=== PATIENT | female | born 1970 | race Caucasian/White ===

== ENCOUNTER → 2016-06-04 | Outpatient (CLI) | payer OTHER ==
[~2016-06-04] MED LIST: ALPR.25T PO; ALPR.5T PO; ALPR0.25 PO; ASPI-266 PO; BLAC80CA PO; BUDE8.43 NS; CALC-676 PO; CIPR-225 PO; CRV25T PO; ESOM20CA PO; FAMO20TA5 PO; FEXO180T84 PO; HYDR-3812 PO; KETO-22 PO; METO25TA2 PO; METO25TA6 PO; METR500T PO; MULT-608 PO; ONDA4TAB8 SL; PANT20TA2 PO; PARO20TA57 PO; PNT40TEC PO; SULF1TAB35 PO
--- NOTE | 2016-06-05 13:24 | Diagnostic Imaging Report ---
Bilateral screening mammogram. The current study was also evaluated with a Computer Aided Detection (CAD) system. INDICATION: Screening. No current complaints stated on the questionnaire. COMPARISON: 06/13/2015. FINDINGS: The breasts are composed of heterogeneously dense parenchyma which may decrease mammographic sensitivity. Occasional punctate calcifications are seen. Allowing for technique and positional differences, no suspicious change is seen. IMPRESSION: Dense breasts with no definite change. ACR BI-RADS Category 2: Benign findings. Result letter will be mailed to the patient. Note: At least 10% of breast cancer is not imaged by mammography. Dictated by: Dictated on workstation # [id number]
== END ==
LOC: RAD 10:25
PROVIDERS: ATTEND Family Medicine
DX: Z12.31 Encounter for screening mammogram for malignant neoplasm of breast (principal)

== ENCOUNTER → 2017-05-20 | Outpatient (CLI) | payer OTHER ==
[~2017-05-20] MED LIST changes: +ACHD5005 PO; -HYDR-3812 PO
--- NOTE | 2017-05-20 17:57 | Diagnostic Imaging Report ---
EXAMINATION: CHEST (PA AND LATERAL) CLINICAL INDICATION: 46-year-old female, cough. Difficulty breathing for one week. COMPARISON: 02/25/2013. FINDINGS: Heart size and mediastinal contours are unchanged. There is no identified pneumothorax. There is no pleural effusion. There is no identified focal airspace consolidation. IMPRESSION: No identified acute cardiopulmonary abnormality. Dictated by: Dictated on workstation # [id number]
== END ==
LOC: RAD 16:47
PROVIDERS: ATTEND Family Medicine
DX: J40 Bronchitis, not specified as acute or chronic (principal)
CPT/HCPCS: 71046

== ENCOUNTER → 2017-06-25 | Outpatient (CLI) | payer OTHER ==
--- NOTE | 2017-06-28 13:21 | Diagnostic Imaging Report ---
INDICATION: Routine screening. COMPARISON: Comparison is made with prior studies of 06/04/2016 and 06/13/2015. The current study was also evaluated with a Computer Aided Detection (CAD) system. FINDINGS: Both breasts are heterogeneously dense, limiting the sensitivity of mammography. The parenchymal pattern is stable. There are scattered benign calcifications present. No spiculated mass or malignant-appearing microcalcifications are seen. The axillae are unremarkable. IMPRESSION: No mammographic features suspicious for malignancy are identified. ACR BI-RADS Category 2: Benign findings. Result letter will be mailed to the patient. Note: At least 10% of breast cancer is not imaged by mammography. Dictated by: Dictated on workstation # [id number]
== END ==
LOC: RAD 14:43
PROVIDERS: ATTEND Family Medicine
DX: Z12.31 Encounter for screening mammogram for malignant neoplasm of breast (principal)
CPT/HCPCS: 77067

== ENCOUNTER → 2018-10-28 | Outpatient (CLI) | payer OTHER ==
--- NOTE | 2018-10-31 10:00 | Diagnostic Imaging Report ---
Indication: Routine screening. Comparison made with prior mammogram 06/25/2017 and 06/04/2016. 2-D and 3-D bilateral screening mammography was performed with CAD. Scattered fibroglandular densities are identified bilaterally. The parenchymal pattern is stable. No dominant mass or malignant appearing microcalcifications are seen. Axilla are unremarkable. Impression: BI-RADS category 2 No mammographic features suspicious for malignancy are identified. Dictated by: Dictated on workstation # [id number]
== END ==
LOC: RAD 15:32
PROVIDERS: ATTEND Family Medicine
DX: Z12.31 Encounter for screening mammogram for malignant neoplasm of breast (principal)
CPT/HCPCS: 77067

== ENCOUNTER → 2019-10-31 | Outpatient (CLI) | payer OTHER ==
--- NOTE | 2019-10-31 16:30 | Diagnostic Imaging Report ---
INDICATION: Routine screening. COMPARISON is made with prior mammograms of 10/28/2018 and 06/25/2017. 2-D and 3-D bilateral screening mammography was performed with CAD. Both breasts remain heterogeneously dense, limiting the sensitivity of mammography. No mass or malignant appearing microcalcifications are seen. Axillae are unremarkable. IMPRESSION: BI-RADS Category 1. No mammographic features suspicious for malignancy are identified. ACR BI-RADS Category 1: Negative. Result letter will be mailed to the patient. Note: At least 10% of breast cancer is not imaged by mammography. Dictated by: Dictated on workstation # [id number]
== END ==
LOC: RAD 14:40
PROVIDERS: ATTEND Family Medicine
DX: Z12.31 Encounter for screening mammogram for malignant neoplasm of breast (principal)
CPT/HCPCS: 77063; 77067

== ENCOUNTER 2020-05-31 05:32 | Outpatient (RCR) | payer OTHER ==
[~2020-05-31] VITALS: Ht 167.7 cm; Wt 88.6 kg
[~2020-05-31 05:32] MED LIST changes: +ALPR0.254 PO; +ASPI-999 PO; +ATOR40TA70 PO; +CALC-901 PO; +METO50TA7 PO; +MULT-567 PO; +OMEG-160 PO; +PANT40TA2 PO; +PARO40TA PO
== END 2020-08-26 | disposition home or self-care (01) ==
LOC: PREOP 05:32
PROVIDERS: ATTEND Obstetrics & Gynecology
DX: Z01.818 Encounter for other preprocedural examination (principal)

== ENCOUNTER → 2020-10-24 | Outpatient (CLI) | payer OTHER ==
--- NOTE | 2020-10-24 16:37 | Diagnostic Imaging Report ---
INDICATION: Screening. At this time there is no current complaint. EXAMINATION: Bilateral digital screening mammogram with CAD. 3D tomographic images were obtained and reviewed. The current study was also evaluated with a Computer Aided Detection (CAD) system. COMPARISON: This study was compared to the prior exams of 10/31/2019, 10/28/2018 and 06/25/2017. FINDINGS: The fibroglandular tissue in both breasts is heterogeneously dense. This does limit the sensitivity of this exam. Overall, there does not appear to have been any significant change when compared to the prior study. No primary or secondary sign of malignancy is noted. IMPRESSION: There is no radiographic evidence for malignancy. ACR BI-RADS Category 1: Negative. Result letter will be mailed to the patient. Note: At least 10% of breast cancer is not imaged by mammography. Dictated by: Dictated on workstation # [id number]
== END ==
LOC: RAD 14:39
PROVIDERS: ATTEND Family Medicine
DX: Z12.31 Encounter for screening mammogram for malignant neoplasm of breast (principal)
CPT/HCPCS: 77063; 77067

== ENCOUNTER → 2020-12-27 | Outpatient (CLI) | payer OTHER ==
[~2020-12-27] MED LIST changes: -SULF1TAB35 PO; +SULF1TAB38 PO
== END ==
LOC: CARD 08:26
PROVIDERS: ATTEND Family Medicine
DX: R00.2 Palpitations (principal)
CPT/HCPCS: 93225; 93226

== ENCOUNTER → 2021-01-02 | Outpatient (CLI) | payer OTHER | LOC: ONC 15:23 | PROVIDERS: ATTEND Nurse Practitioner Adult Health | DX: K21.9 Gastro-esophageal reflux disease without esophagitis (principal); Z72.0 Tobacco use; Z80.3 Family history of malignant neoplasm of breast ==

== ENCOUNTER 2021-04-23 02:33 | Emergency (ER) | payer OTHER ==
[~2021-04-23] VITALS: Ht 168 cm; Wt 87.0 kg
[2021-04-23] MEDS ORDERED: hydrALAZINE (APESOLINE) 20 MG/ML VIAL IV ONE ×2 (03:15→04:15)
[2021-04-23 03:35] LABS: BASOPHILS # (AUTO) 0.1 10^3/uL (0.0-0.1); BASOPHILS % (AUTO) 1 % (0-10); EOSINOPHILS # (AUTO) 0.3 10^3/uL (0.0-0.3); EOSINOPHILS % (AUTO) 3 % (0-10); HEMATOCRIT 44 % (35-52); HEMOGLOBIN 14.4 g/dL (11.5-16.0); LYMPHOCYTES # (AUTO) 4.1 10^3/uL (1.0-4.0); LYMPHOCYTES % (AUTO) 42 % (12-44); MEAN CORPUSCULAR HEMOGLOBIN 31 pg (25-34); MEAN CORPUSCULAR HGB CONC 33 g/dL (32-36); MEAN CORPUSCULAR VOLUME 95 fL (80-99); MEAN PLATELET VOLUME 10.3 fL (9.0-12.2); MONOCYTES # (AUTO) 0.6 10^3/uL (0.0-1.0); MONOCYTES % (AUTO) 6 % (0-12); NEUTROPHILS # (AUTO) 4.7 10^3/uL (1.8-7.8); NEUTROPHILS % (AUTO) 48 % (42-75); PLATELET COUNT 269 10^3/uL (130-400); WHITE BLOOD COUNT 9.8 10^3/uL (4.3-11.0)
[2021-04-23 03:44] LABS: ALBUMIN 4.6 GM/DL (3.2-4.5); CHLORIDE 103 MMOL/L (98-107); POTASSIUM 3.7 MMOL/L (3.6-5.0); SODIUM 140 MMOL/L (135-145)
[2021-04-23 03:46] LABS: CALCIUM 10.1 MG/DL (8.5-10.1)
[2021-04-23 03:47] LABS: GLUCOSE 96 MG/DL (70-105)
[2021-04-23 03:48] LABS: CARBON DIOXIDE 25 MMOL/L (21-32)
[2021-04-23 03:49] LABS: BILIRUBIN,TOTAL 0.7 MG/DL (0.1-1.0)
--- NOTE | 2021-04-23 03:49 | ED Cardiac General ---
History of Present Illness General Chief Complaint: Cardiac/General Problems Stated Complaint: HIGH BLOOD PRESSURE 198/111,SWEATING Nursing Triage Note: PT AMB TO ED BY POV WITH C/O HTN. PT REPORTS HER BP WAS 196/111 WHEN SHE TOOK IT APPROX 20 MIN PRIOR TO ARRIVAL. STATES SHE WAS VERY SWEATY THIS EVENING/THROUGH THE NIGHT SO SHE TOOK HER BP. PT ALSO REPORTS [place]. DENIES CP, SOB, N/V, CHANGES IN MEDICATION. Source: patient History of Present Illness Date Seen by Provider: Apr 23, 2021 Time Seen by Provider: 03:05 Initial Comments PT ARRIVES VIA POV FROM HOME C/O ELEVATED BLOOD PRESSURE PT STATES SHE WAS WRAPPING VIV PRESENTS FROM AROUND 2130 TONIGHT UNTIL MIDNIGHT, AND GOT SWEATY, SO CHECKED HER BLOOD PRESSURE AND IT WAS ELEVATED, HAS CHECKED IT SEVERAL TIMES LAST BLOOD PRESSURE CHECK WAS 20 MINUTES PRIOR TO ARRIVAL AND WAS 196/111 C/O GENERALIZED HEADACHE NO VISION CHANGES NO CHEST PAIN NO SHORTNESS OF BREATH NO DIZZINESS OR SYNCOPE NO NAUSEA/VOMITING NO PARESTHESIAS OR MOTOR DEFICITS NO SWELLING IN LEGS/FEET OR PAIN IN CALVES PT STATES SHE ALWAYS HAS PALPITATIONS, AND HAD A HOLTER MONITOR A COUPLE OF MONTHS AGO AND SHOWED PVC'S AND NO OTHER ARRHYTHMIAS NO HISTORY OF BLOOD PRESSURE THIS HIGH. 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 DENIES ANY DECONGESTANT USE PT HAD COVID BOOSTER VACCINE ON Wednesday04/18/21--NO SIGNIFICANT SIDE EFFECTS. PCP: DR. FAM--LAST VISIT WAS 3-4 MONTHS AGO Allergies and Home Medications Allergies Coded Allergies: codeine (Unverified Allergy, Unknown, 03/23/14) amoxicillin (Verified Adverse Reaction, Mild, Nausea, 05/28/20) clavulanic acid (Verified Adverse Reaction, Mild, Nausea, 05/28/20) Patient Home Medication List Home Medication List Reviewed: Yes ALPRAZolam (ALPRAZolam) 0.25 Mg Tablet, 0.25 MG PO BID PRN, (Reported) Entered as Reported by: AAYUSH DOTY on 05/28/20 1120 Aspirin (Aspirin) 81 Mg Tab.chew, 81 MG PO DAILY, (Reported) Entered as Reported by: AAYUSH DOTY on 05/28/20 112 Atorvastatin Calcium (Atorvastatin Calcium) Unknown Strength Tablet, Unknown Dose PO DAILY, (Reported) Entered as Reported by: AAYUSH DOTY on 05/28/20 112 Budesonide (Rhinocort Allergy) 8.43 Ml [place].pump, Unknown Dose NS, (Reported) Entered as Reported by: CAITLYN VALLE on 10/26/15 1435 Calcium Carbonate/Vitamin D3 (Calcium 600 + Vit D 800 Tab) 1 Each Tablet, 1 EACH PO BID, (Reported) Entered as Reported by: AAYUSH DOTY on 05/28/20 112 Fexofenadine HCl (Jo-Ann Allergy) 180 Mg Tablet, 180 MG PO DAILY, (Reported) Entered as Reported by: CAITLYN VALLE on 10/26/15 1435 Hydralazine HCl (Hydralazine HCl) 10 Mg Tablet, 10 MG PO TID PRN for BLOOD PRESSURE Prescribed by: ALANNA SELBY on 04/23/21 0409 Metoprolol Succinate (Metoprolol Succinate) Unknown Strength Tab.er.24h, Unknown Dose PO DAILY, (Reported) Entered as Reported by: AAYUSH DOTY on 05/28/20 112 Multivitamin (Multivitamins) 1 Each Tablet, 1 EACH PO DAILY, (Reported) Entered as Reported by: AAYUSH DOTY on 05/28/20 112 [place]-3/Dha/Epa/Fish Oil (Fish Oil 1,000 mg Softgel) 1 Each Capsule, 1 EACH PO BID, (Reported) Entered as Reported by: AAYUSH DOTY on 05/28/20 112 Pantoprazole Sodium (Protonix) 40 Mg Tablet.dr, 40 MG PO DAILY, (Reported) Entered as Reported by: AAYUSH DOTY on 05/28/20 112 Paroxetine HCl (Paxil) 40 Mg Tablet, 40 MG PO DAILY, (Reported) Entered as Reported by: AAYUSH DOTY on 05/28/201119 Review of Systems Review of Systems Constitutional: no symptoms reported EENTM: No Symptoms Reported Respiratory: No Symptoms Reported Cardiovascular: See HPI Gastrointestinal: No Symptoms Reported Genitourinary: No Symptoms Reported Musculoskeletal: no symptoms reported Skin: no symptoms reported Psychiatric/Neurological: See HPI, Headache Endocrine: No Symptoms Reported Hematologic/Lymphatic: No Symptoms Reported Past Oncwmfz-Pmnfmr-Onqmwl Hx Patient Social History Tobacco Use?: Yes Tobacco type used: Cigarettes Smoking Status: Current Everyday Smoker Substance use?: No Alcohol Use?: No Seasonal Allergies Seasonal Allergies: Yes Past Medical History Surgeries: Yes (CERVICAL/UTERINE ABLATION) Respiratory: No Cardiac: Yes (TACHYCARDIA; PVC'S) Hypertension, Palpitations Neurological: No Reproductive Disorders: Yes Female Reproductive Disorders: Menstrual Problems, Ovarian Cyst Gastrointestinal: Yes Gastroesophageal Reflux Musculoskeletal: No Endocrine: No HEENT: No Cancer: No Psychosocial: Yes Anxiety, Depression Integumentary: No Blood Disorders: No Family Medical History Cancer, Diabetes, Hypertension, Stroke Physical Exam Vital Signs Vital Signs - First Documented 04/23/21 02:50 Temp 36.9 Pulse 67 Resp 23 B/P (MAP) 197/123 (147) Pulse Ox 100 O2 Delivery Room Air Capillary Refill : Less Than 3 Seconds Height, Weight, BMI Height: 5'6" Weight: 160lbs. oz. 72.119608tn; 30.00 BMI Method:Stated General Appearance: No Apparent Distress, WD/WN HEENT: PERRL/EOMI Neck: Full Range of Motion, Normal Inspection, Non Tender, Supple; No Carotid Bruit, No JVD Respiratory: Normal Breath Sounds, No Accessory Muscle Use, No Respiratory Distress Cardiovascular: Regular Rate, Rhythm, No Edema, No JVD, No Murmur, Normal Peripheral Pulses Gastrointestinal: Soft Extremity: Normal Capillary Refill, Normal Inspection, Normal Range of Motion, Non Tender, No Calf Tenderness, No Pedal Edema Neurologic/Psychiatric: Alert, Oriented x3, No Motor/Sensory Deficits, Normal Mood/Affect, national account executive II-XII Norm as Tested; No Abnormal Cerebellar Tests Skin: Normal Color, Warm/Dry Progress/Results/Core Measures Results/Orders Lab Results Laboratory Tests Test 04/23/21 03:20 04/23/21 03:45 Range/Units White Blood Count 9.8 4.3-11.0 10^3/uL Red Blood Count 4.61 3.80-5.11 10^6/uL Hemoglobin 14.4 11.5-16.0 g/dL Hematocrit 44 35-52 % Mean Corpuscular Volume 95 80-99 fL Mean Corpuscular Hemoglobin 31 25-34 pg Mean Corpuscular Hemoglobin Concent 33 32-36 g/dL Red Cell Distribution Width 13.2 10.0-14.5 % Platelet Count 269 130-400 10^3/uL Mean Platelet Volume 10.3 9.0-12.2 fL Immature Granulocyte % (Auto) 0 % Neutrophils (%) (Auto) 48 42-75 % Lymphocytes (%) (Auto) 42 12-44 % Monocytes (%) (Auto) 6 0-12 % Eosinophils (%) (Auto) 3 0-10 % Basophils (%) (Auto) 1 0-10 % Neutrophils # (Auto) 4.7 1.8-7.8 10^3/uL Lymphocytes # (Auto) 4.1 H 1.0-4.0 10^3/uL Monocytes # (Auto) 0.6 0.0-1.0 10^3/uL Eosinophils # (Auto) 0.3 0.0-0.3 10^3/uL Basophils # (Auto) 0.1 0.0-0.1 10^3/uL Immature Granulocyte # (Auto) 0.0 0.0-0.1 10^3/uL Sodium Level 140 135-145 MMOL/L Potassium Level 3.7 3.6-5.0 MMOL/L Chloride Level 103 98-107 MMOL/L Carbon Dioxide Level 25 21-32 MMOL/L Anion Gap 12 5-14 MMOL/L Blood Urea Nitrogen 15 7-18 MG/DL Creatinine 0.82 0.60-1.30 MG/DL Estimat Glomerular Filtration Rate 73 BUN/Creatinine Ratio 18 Glucose Level 96 70-105 MG/DL Calcium Level 10.1 8.5-10.1 MG/DL Corrected Calcium 8.5-10.1 MG/DL Magnesium Level 2.1 1.6-2.4 MG/DL Total Bilirubin 0.7 0.1-1.0 MG/DL Aspartate Amino Transf (AST/SGOT) 24 5-34 U/L Alanine Aminotransferase (ALT/SGPT) 35 0-55 U/L Alkaline Phosphatase 104 40-136 U/L Troponin I < 0.028 <0.028 NG/ML B-Type Natriuretic Peptide 16.7 <100.0 PG/ML Total Protein 8.0 6.4-8.2 GM/DL Albumin 4.6 H 3.2-4.5 GM/DL TSH Stites Testing 1.52 0.35-4.94 UIU/ML Urine Color YELLOW Urine Clarity CLEAR Urine pH 7.0 5-9 Urine Specific [place] 1.020 1.016-1.022 Urine Protein NEGATIVE NEGATIVE Urine Glucose (UA) NEGATIVE NEGATIVE Urine Ketones NEGATIVE NEGATIVE Urine Nitrite NEGATIVE NEGATIVE Urine Bilirubin NEGATIVE NEGATIVE Urine Urobilinogen 0.2 < = 1.0 MG/DL Urine Leukocyte Esterase NEGATIVE NEGATIVE Urine RBC (Auto) NEGATIVE NEGATIVE Urine RBC NONE /HPF Urine WBC NONE /HPF Urine Squamous Epithelial Cells RARE /HPF Urine Crystals NONE /LPF Urine Bacteria NEGATIVE /HPF Urine Casts NONE /LPF Urine Mucus NEGATIVE /LPF Urine Culture Indicated NO My Orders Orders - ALANNA SELBY DO Ed Iv/Invasive Line Start (04/23/21 03:10) Ekg Tracing (04/23/21 03:10) Monitor-Rhythm Ecg Trace Only (04/23/21 03:10) Chest 1 View, Ap/Pa Only (04/23/21 03:10) Bnp [place] (04/23/21 03:10) Cbc With Automated Diff (04/23/21 03:10) Comprehensive Metabolic Panel (04/23/21 03:10) Magnesium (04/23/21 03:10) Thyroid Analyzer (04/23/21 03:10) Ua Culture If Indicated (04/23/21 03:10) Troponin I [place] (04/23/21 03:10) Hydralazine Injection (Apresoline Inject (04/23/21 03:15) Hydralazine Injection (Apresoline Inject (04/23/21 04:15) Medications Given in ED Current Medications Medications Dose Ordered Sig/Dimitri Route Start Time Stop Time Status Last Admin Dose Admin Hydralazine HCl 10 mg ONCE ONCE IV 04/23/21 03:15 04/23/21 03:16 DC 04/23/21 03:25 10 MG Hydralazine HCl 10 mg ONCE ONCE IV 04/23/21 04:15 04/23/21 04:16 DC 04/23/21 04:18 10 MG Vital Signs/I&O 04/23/21 02:50 Temp 36.9 Pulse 67 Resp 23 B/P (MAP) 197/123 (147) Pulse Ox 100 O2 Delivery Room Air Blood Pressure Mean: 147 Progress Progress Note : Progress Note BP 197/123 ON ARRIVAL HR IN 50'S ON ARRIVAL--PT IS ON BETA DINORA GIVEN HYDRALAZINE FOR ELEVATED BLOOD PRESSURE BP DOWN TO 140'S/90'S AT DISMISSAL PT ASYMPTOMATIC AT DISMISSAL Initial ECG Impression Date: Apr 23, 2021 Initial ECG Impression Time: 03:40 Initial ECG Rate: 60 Initial ECG Rhythm: Normal Sinus Diagnostic Imaging Comments CXR--NO ACUTE PROCESS, PENDING RADIOLOGIST REVIEW Reviewed: Reviewed by Me Departure Impression Primary Impression: Hypertensive urgency Disposition: 01 HOME, SELF-CARE Condition: Improved Departure-Patient Inst. Decision time for Depature: 05:15 Referrals: JOSY FAM DO (PCP/Family) Primary Care Physician Patient Instructions: High Blood Pressure (DC), DASH Diet Add. Discharge Instructions: HOME, REST CONTINUE YOUR METOPROLOL PRESCRIBED FOLLOW UP WITH DR. FAM THIS WEEK FOR FURTHER CARE--CALL THIS MORNING TO SCHEDULE APPOINTMENT All discharge instructions reviewed with patient and/or family. Voiced understanding. Scripts Hydralazine HCl (Hydralazine HCl) 10 Mg Tablet 10 MG PO TID PRN for BLOOD PRESSURE, #15 TAB TAKE NEEDED THREE TIMES A DAY FOR SYSTOLIC BP > 160 OR DIASTOLIC BP > 100 Prov: ALANNA SELBY DO 04/23/21 ALANNA SELBY DO Apr 23, 2021 03:49
[2021-04-23 03:50] LABS: ALKALINE PHOSPHATASE 104 U/L (40-136); CREATININE SERUM 0.82 MG/DL (0.60-1.30); GFR ESTIMATED 73
[2021-04-23 03:51] LABS: BUN/CREATININE RATIO 18
[2021-04-23 03:53] LABS: ALANINE AMINOTRANSFERASE 35 U/L (0-55); MAGNESIUM 2.1 MG/DL (1.6-2.4)
[2021-04-23 03:53] LABS: BILIRUBIN,URINE NEGATIVE (NEGATIVE); CLARITY,URINE CLEAR; COLOR,URINE YELLOW; GLUCOSE, URINE (UA) NEGATIVE (NEGATIVE); KETONES,URINE NEGATIVE (NEGATIVE); LEUKOCYTE ESTERASE ,URINE NEGATIVE (NEGATIVE); NITRITE,URINE NEGATIVE (NEGATIVE); PROTEIN,URINE NEGATIVE (NEGATIVE)
[2021-04-23 04:07] LABS: BACTERIA,URINE NEGATIVE /HPF; SQUAMOUS EPITHELIAL CELL,UR RARE /HPF
[2021-04-23] MEDS ORDERED: HYDR-3922 PO (04:09)
[2021-04-23 04:14] LABS: TSH (THYROID ANALYZER) 1.52 UIU/ML (0.35-4.94)
[2021-04-23 05:20] VITALS: BP 135/98
--- NOTE | 2021-04-23 06:48 | Diagnostic Imaging Report ---
EXAMINATION: Chest radiograph, portable AP view. DATE: 04/23/2021 3:41 AM INDICATION: 50-year-old female, hypertension. COMPARISON: January 11, 2013. FINDINGS: Heart size and mediastinal contours are unchanged. There is no identified pneumothorax. There is no large pleural effusion. There is no identified focal airspace consolidation. IMPRESSION: No identified acute cardiopulmonary abnormality. Dictated by: Dictated on workstation # [id number]
[2021-04-24] MEDS ORDERED: CLN.1T PO (18:05)
== END 2021-04-23 05:20 | disposition home or self-care (01) ==
LOC: EDUNIT# 02:33 → ER 02:37
DX: I10 Essential (primary) hypertension (principal); K21.9 Gastro-esophageal reflux disease without esophagitis; F41.9 Anxiety disorder, unspecified; F32.9 Major depressive disorder, single episode, unspecified; F17.210 Nicotine dependence, cigarettes, uncomplicated; Z79.899 Other long term (current) drug therapy; Z79.82 Long term (current) use of aspirin
CPT/HCPCS: 36415; 71045; 80053; 81000; 83735; 83880; 84443; 84484; 85025; 93005; 93041

== ENCOUNTER 2021-04-24 16:30 | Emergency (ER) | payer OTHER ==
[~2021-04-24] VITALS: Ht 167.7 cm; Wt 88.4 kg
[~2021-04-24 16:30] MED LIST changes: +HYDR-3922 PO
--- NOTE | 2021-04-24 16:55 | ED Cardiac General ---
History of Present Illness General Chief Complaint: Cardiac/General Problems Stated Complaint: HIGH BLOOD PRESSURE Source: patient Exam Limitations: no limitations History of Present Illness Date Seen by Provider: Apr 24, 2021 Time Seen by Provider: 16:52 Initial Comments To ER by private vehicle with reports of hypertension up to 200s over 100. She has no other symptoms such as chest pain shortness of breath fevers or chills. She has some intermittent very brisk sharp left-sided chest pains lasting only few seconds at a time. She is been on metoprolol 50 mg twice daily for a long time for hypertension and tachycardia. She was seen here 2 days ago for hypertension. She was given prescription for as needed hydralazine which she most recently had at 4:30 PM today. She also saw Dr. FAM who added losartan yesterday and she had it both yesterday and today. She has also had her metoprolol as directed. Timing/Duration: changing over time Severity: moderate Location: central Activities at Onset: none NTG SL MAINFRAME DEVELOPER: No ASA po MAINFRAME DEVELOPER: No Associated Systoms: Chest Pain (Brief sharp left-sided chest pain lasting only a few seconds.); No Cough, No Diaphoresis, No Fever/Chills, No Headaches, No Loss of Appetite, No Malaise, No Nausea/Vomiting Allergies and Home Medications Allergies Coded Allergies: codeine (Unverified Allergy, Unknown, 03/23/14) amoxicillin (Verified Adverse Reaction, Mild, Nausea, 05/28/20) clavulanic acid (Verified Adverse Reaction, Mild, Nausea, 05/28/20) Patient Home Medication List Home Medication List Reviewed: Yes ALPRAZolam (ALPRAZolam) 0.25 Mg Tablet, 0.25 MG PO BID PRN, (Reported) Entered as Reported by: AAYUSH DOTY on 05/28/20 1120 Aspirin (Aspirin) 81 Mg Tab.chew, 81 MG PO DAILY, (Reported) Entered as Reported by: AAYUSH DOTY on 05/28/20 1120 Atorvastatin Calcium (Atorvastatin Calcium) Unknown Strength Tablet, Unknown Dose PO DAILY, (Reported) Entered as Reported by: AAYUSH DOTY on 05/28/20 1120 Budesonide (Rhinocort Allergy) 8.43 Ml [place].pump, Unknown Dose NS, (Reported) Entered as Reported by: CAITLYN VALLE on 10/26/15 1435 Calcium Carbonate/Vitamin D3 (Calcium 600 + Vit D 800 Tab) 1 Each Tablet, 1 EACH PO BID, (Reported) Entered as Reported by: AAYUSH DOTY on 05/28/20 1120 Fexofenadine HCl (Sujata Allergy) 180 Mg Tablet, 180 MG PO DAILY, (Reported) Entered as Reported by: CAITLYN VALLE on 10/26/15 1435 Hydralazine HCl (Hydralazine HCl) 10 Mg Tablet, 10 MG PO TID PRN for BLOOD PRESSURE Prescribed by: ALANNA SELBY on 04/23/21 0409 Metoprolol Succinate (Metoprolol Succinate) Unknown Strength Tab.er.24h, Unknown Dose PO DAILY, (Reported) Entered as Reported by: AAYUSH DOTY on 05/28/20 112 Multivitamin (Multivitamins) 1 Each Tablet, 1 EACH PO DAILY, (Reported) Entered as Reported by: AAYUSH DOTY on 05/28/20 112 [place]-3/Dha/Epa/Fish Oil (Fish Oil 1,000 mg Softgel) 1 Each Capsule, 1 EACH PO BID, (Reported) Entered as Reported by: AAYUSH DOTY on 05/28/20 112 Pantoprazole Sodium (Protonix) 40 Mg Tablet.dr, 40 MG PO DAILY, (Reported) Entered as Reported by: AAYUSH DOTY on 05/28/20 112 Paroxetine HCl (Paxil) 40 Mg Tablet, 40 MG PO DAILY, (Reported) Entered as Reported by: AAYUSH DOTY on 05/28/201119 Review of Systems Review of Systems Constitutional: see HPI; No chills, No diaphoresis, No dizziness, No fever EENTM: No Symptoms Reported Respiratory: No Symptoms Reported; Denies Cough, Denies Orthopnea Cardiovascular: See HPI, Chest Pain Gastrointestinal: No Symptoms Reported Genitourinary: No Symptoms Reported Musculoskeletal: no symptoms reported Skin: no symptoms reported Psychiatric/Neurological: No Symptoms Reported Hematologic/Lymphatic: No Symptoms Reported Past Lmtztbt-Bcowgy-Kiexyx Hx Immunizations Up To Date First/Initial COVID19 Vaccinat: MAY 2020 Second COVID19 Vaccination Sal: MAY 2020 Third COVID19 Vaccination Date: APR 2021 Seasonal Allergies Seasonal Allergies: Yes Past Medical History Surgery/Hospitalization HX: HTN, GERD, HIGH CHOLESTEROL Surgeries: Yes (CERVICAL/UTERINE ABLATION) Respiratory: No Cardiac: Yes (TACHYCARDIA; PVC'S) Hypertension, Palpitations Neurological: No Reproductive Disorders: Yes Female Reproductive Disorders: Menstrual Problems, Ovarian Cyst Gastrointestinal: Yes Gastroesophageal Reflux Musculoskeletal: No Endocrine: No HEENT: No Cancer: No Psychosocial: Yes Anxiety, Depression Integumentary: No Blood Disorders: No Family Medical History Cancer, Diabetes, Hypertension, Stroke Physical Exam Vital Signs Vital Signs - First Documented 04/24/21 16:44 Pulse 67 Resp 17 B/P (MAP) 198/104 (135) Pulse Ox 97 O2 Delivery Room Air Capillary Refill : Height, Weight, BMI Height: 5'6" Weight: 160lbs. oz. 72.497537jv; 30.00 BMI Method:Stated General Appearance: No Apparent Distress, WD/WN Neck: Full Range of Motion, Normal Inspection Respiratory: No Accessory Muscle Use, No Respiratory Distress Cardiovascular: Regular Rate, Rhythm, Normal Peripheral Pulses Gastrointestinal: Normal Bowel Sounds, Non Tender, Soft Extremity: Normal Capillary Refill, Normal Inspection Neurologic/Psychiatric: Alert, Oriented x3 Skin: Normal Color, Warm/Dry Progress/Results/Core Measures Results/Orders Lab Results Laboratory Tests Test 04/24/21 16:56 Range/Units Troponin I < 0.028 <0.028 NG/ML My Orders Orders - ELIZABETH PADGETT APRN Troponin I [place] (04/24/21 16:51) Ekg Tracing (04/24/21 16:51) Clonidine Tablet (Catapres Tablet) (04/24/21 17:00) Hydralazine Tablet (Apresoline Tablet) (04/24/21 18:00) Medications Given in ED Current Medications Medications Dose Ordered Sig/Dimitri Route Start Time Stop Time Status Last Admin Dose Admin Clonidine HCl 0.1 mg ONCE ONCE PO 04/24/21 17:00 04/24/21 17:01 DC 04/24/21 17:00 0.1 MG Vital Signs/I&O 04/24/21 16:44 Pulse 67 Resp 17 B/P (MAP) 198/104 (135) Pulse Ox 97 O2 Delivery Room Air Departure Communication (Admissions) 1737-EKG shows a rate of 57 sinus no ectopy no ST segment change normal intervals 1800-work blood pressures down to 168 over89. Troponin negative. We will stop the hydralazine and have her instead use clonidine 0.1 mg p.o. twice daily as needed SBP greater than 160 in addition to half of her Ativan 1 mg tablets. She states that she has Xanax 1 mg tablets but she cuts them into fourths and takes it 3 times a day. We had a long talk about anxiety contributing to this high blood pressure and she admits that she will check her blood pressure find it to be elevated and then become anxious and get in this cycle of checking it and fi nding it to be higher and then becoming more anxious and then rechecking it. She agrees to only check it twice a day. She will continue to take her metoprolol and losartan. Impression Primary Impression: Hypertension Disposition: HOME, SELF-CARE Condition: Stable Departure-Patient Inst. Decision time for Depature: 17:32 Referrals: JOSY FAM DO (PCP/Family) Primary Care Physician Patient Instructions: High Blood Pressure in Adults Add. Discharge Instructions: 1. Only check your blood pressure twice a day. Return to ER for any new symptoms. Continue the metoprolol and continue the losartan. Stop the hydralazine. Instead, take the clonidine 0.1 mg tablet twice a day as needed for a systolic blood pressure greater than 160. If you find it to be elevated you should also take one half of your 1 mg Xanax tablet. All discharge instructions reviewed with patient and/or family. Voiced understanding. Scripts Clonidine HCl (Clonidine HCl) 0.1 Mg Tablet 0.1 MG PO BID PRN for SBP >160, #14 TAB Prov: ELIZABETH PADGETT APRN 04/24/21 Work/School Note: Work Release Form Date Seen in the Emergency Department: Apr 24, 2021 Return to Work: Apr 25, 2021 ELIZABETH PADGETT APRN Apr 24, 2021 16:55
[2021-04-24] MEDS ORDERED: cloNIDine 0.1 MG (CATAPRES) TAB PO ONE (17:00)
[2021-04-24] MEDS ORDERED: hydrALAZINE (APRESOLINE) 25 MG TAB PO ONE (18:00)
[2021-04-24] MEDS ORDERED: CLN.1T PO (18:05)
[2021-04-24 18:23] VITALS: BP 141/90
== END 2021-04-24 18:23 | disposition home or self-care (01) ==
LOC: EDUNIT# 16:30 → ER 16:33
DX: I10 Essential (primary) hypertension (principal); E78.00 Pure hypercholesterolemia, unspecified; K21.9 Gastro-esophageal reflux disease without esophagitis; F41.9 Anxiety disorder, unspecified; F32.9 Major depressive disorder, single episode, unspecified; Z79.899 Other long term (current) drug therapy; Z79.82 Long term (current) use of aspirin
CPT/HCPCS: 36415; 84484; 93005

== ENCOUNTER → 2021-05-22 | Outpatient (CLI) | payer OTHER ==
[~2021-05-22] MED LIST changes: +CLN.1T PO
== END ==
LOC: CARD 14:30
PROVIDERS: ATTEND Family Medicine
DX: I51.7 Cardiomegaly (principal); I16.0 Hypertensive urgency; I51.89 Other ill-defined heart diseases
CPT/HCPCS: 93306

== ENCOUNTER 2021-06-24 05:33 | Outpatient (CLI) | payer OTHER ==
[~2021-06-24] VITALS: Ht 167.7 cm; Wt 90.8 kg
[2021-06-26] MEDS ORDERED: AMLO-250 PO (15:48)
[2021-06-26] MEDS ORDERED: LOSA50TA63 PO (15:48)
[2021-06-26] MEDS ORDERED: BUDE8.435 NS (15:48)
[2021-07-01] MEDS ORDERED: IBUP-844 PO (13:06)
[2021-07-01] MEDS ORDERED: ACET-93 PO (13:06)
[2021-07-01] MEDS ORDERED: SMT80CT PO (13:06)
[2021-07-01] MEDS ORDERED: DOCU-143 PO (13:06)
== END 2021-06-26 16:06 | disposition home or self-care (01) ==
LOC: PREOP 05:33
PROVIDERS: ATTEND Obstetrics & Gynecology
DX: Z01.818 Encounter for other preprocedural examination (principal)

== ENCOUNTER 2021-07-01 08:28 | Day surgery (SDC) | payer OTHER ==
[2021-07-01] VITALS (13 sets, daily range): BP systolic 94–123; BP diastolic 46–74
[~2021-07-01] VITALS: Ht 167.7 cm; Wt 90.8 kg
[~2021-07-01 08:28] MED LIST changes: +AMLO-250 PO; +BUDE8.435 NS; +LOSA50TA63 PO
[2021-07-01] MEDS ORDERED: ceFAZolin 2 GM IV Premixed 50 ML IV ONE (08:45)
[2021-07-01 08:47] LABS: CLARITY,URINE SL CLOUDY; COLOR,URINE YELLOW; GLUCOSE, URINE (UA) NEGATIVE (NEGATIVE); KETONES,URINE NEGATIVE (NEGATIVE); LEUKOCYTE ESTERASE ,URINE TRACE (NEGATIVE); NITRITE,URINE NEGATIVE (NEGATIVE); PROTEIN,URINE 1+ (NEGATIVE)
[2021-07-01 08:57] LABS: BACTERIA,URINE MODERATE /HPF; BILIRUBIN,URINE 1+ (NEGATIVE)
[2021-07-01] MEDS ORDERED: ESTRADIOL VAGINAL CREAM 42.5 GM (ESTRACE) VG ONE (09:40)
[2021-07-01] MEDS ORDERED: NS (IVPB) 100 ML ONE (09:40)
[2021-07-01] MEDS ORDERED: LIDOCAINE/EPI 1%-1:200,000 (XYLOCAINE) 30 ML VIAL ONE (09:40)
[2021-07-01] MEDS: LACTATED RINGERS 1,000 ML IV PRN ×4 (09:41→12:53)
[2021-07-01] MEDS ORDERED: VASOPRESSIN INJECTION 20 UNIT/ML VIAL ONE (09:41)
--- NOTE | 2021-07-01 09:43 | Progress Note-Pre Operative ---
Pre-Operative Progress Note H&P Reviewed The H&P was reviewed, patient examined and no changes noted. Date Seen by Provider: Jul 01, 2021 Time Seen by Provider: 09:40 Date H&P Reviewed: Jun 30, 2021 Time H&P Reviewed: 17:00 Pre-Operative Diagnosis: incomplete uterovaginal prolapse, cystocele/rectocele, stress incontinence TONNY HI DO Jul 01, 2021 09:43
[2021-07-01 09:48] LABS: BASOPHILS % (AUTO) 0 % (0-10); EOSINOPHILS # (AUTO) 0.2 10^3/uL (0.0-0.3); EOSINOPHILS % (AUTO) 3 % (0-10); HEMATOCRIT 41 % (35-52); HEMOGLOBIN 13.8 g/dL (11.5-16.0); LYMPHOCYTES # (AUTO) 2.8 10^3/uL (1.0-4.0); LYMPHOCYTES % (AUTO) 31 % (12-44); MEAN CORPUSCULAR HEMOGLOBIN 32 pg (25-34); MEAN CORPUSCULAR HGB CONC 33 g/dL (32-36); MEAN CORPUSCULAR VOLUME 95 fL (80-99); MEAN PLATELET VOLUME 10.7 fL (9.0-12.2); MONOCYTES # (AUTO) 0.5 10^3/uL (0.0-1.0); MONOCYTES % (AUTO) 6 % (0-12); NEUTROPHILS # (AUTO) 5.4 10^3/uL (1.8-7.8); NEUTROPHILS % (AUTO) 60 % (42-75); PLATELET COUNT 264 10^3/uL (130-400)
[2021-07-01] MEDS ORDERED: ROCURONIUM 10 MG/ML 5 ML SYRINGE IV ONE ×2 (09:51→11:39)
[2021-07-01] MEDS ORDERED: proPOfol 200 MG/20 ML (DIPRIVAN) VIAL IV ONE (09:51)
[2021-07-01] MEDS ORDERED: LIDOCAINE PF 2% 5 ML (XYLOCAINE) VIAL ONE (09:51)
[2021-07-01] MEDS ORDERED: MIDAZOLAM 2 MG/2 ML (VERSED) VIAL ONE (09:51)
[2021-07-01] MEDS ORDERED: fentaNYL INJ 100 MCG/2 ML AMP ONE (09:51)
[2021-07-01] MEDS ORDERED: ONDANSETRON 4 MG/2 ML (SDV) Z0FRAN ONE (11:02)
[2021-07-01] MEDS ORDERED: PHENYLEPHRINE 100 MCG/ML 10 ML (ANESTHESIA) SYR ONE (11:02)
[2021-07-01] MEDS ORDERED: diphenhydrAMINE 50 MG/ML INJ (BENADRYL) ONE (11:02)
[2021-07-01] MEDS ORDERED: GLYCOPYRROLATE 0.2 MG/ML (ROBINUL) 2 ML VIAL ONE (12:44)
[2021-07-01] MEDS ORDERED: NEOSTIGMINE 3 MG/3 ML VIAL ONE (12:44)
[2021-07-01] MEDS ORDERED: KETOROLAC 30 MG/ML VIAL ONE (12:52)
--- NOTE | 2021-07-01 12:56 | Operative Report ---
Operative Report Date of Procedure/Surgery Jul 01, 2021 Surgeon (s) TONNY HI DO Food Service Utility Worker (s): NA Post-Operative Diagnosis incomplete uterovaginal prolapse stress incontinence left ovarian cyst Procedure Performed RaTH, LSO Anterior posterior colporrhaphy Pubovaginal sling Description of Procedure Anesthesia Type: General Estimated blood loss (mL): 200 Specimen(s) collected/removed uterus, left tube and ovary Description of the Procedure After informed consent was obtained, patient was taken into the operating room where general anesthetic was found to be adequate. She was prepped and draped in the usual sterile fashion in the dorsal lithotomy position. A Storey catheter was placed. A speculum was placed in the vagina. The cervix was visualized and the anterior lip was grasped with a sharp toothed tenaculum. The uterus was sounded and depth was approximately 6 centimeters. I placed the Nayla device (8 cm) and a 3.0 cm collar was advanced over the cervix. I inserted the Nayla without difficulty, inflating the balloon and securing it around the fornix of the cervix. The collar was then secured with sutures at 12 o'clock. Attention was then turned to the patient's abdomen. The skin was injected with 0.25% Marcaine. A supraumbilical incision was made about 8 mm in length. A Veress needle was inserted and I confirmed intraabdominal placement with a drop in pressure and the saline drop test. The opening pressure was 5 mmHg. I then insufflated the abdomen to a maximum of 15 mmHg with warmed CO2 gas. I placed an additional 8 mm trocar approximately 15 cm lateral to the umbilicus on the left and another on the right. These were all 8 mm trocars. These were placed under direct visualization of the laparoscope. 0.25% Marcaine was injected prior to placement of all trocars. When all placements were confirmed, the patient was placed in steep Trendelenburg allowing adequate visualization. There was a very large left ovarian cyst noted in the upper pelvis superior to the uterus. This appeared to be serous with clear fluid. At this point, it was determined that the procedure could be performed robotically and the robot was brought in for docking. The docking was accomplished without difficulty. I then took over the command of the robot utilizing the synchroseal and monopolar mary carmen. I then was able to visualize the round ligaments bilaterally, grasped and then cauterized with bipolar cautery and then cut with my mary carmen. I then grasped the uterine ovarian ligaments separately bilaterally and cauterized and cut with the synchroseal. I left the left ovary and tube to be removed after the hysterectomy. then moved my dissection to the posterior leaves of the broad ligament. I dissected the posterior leaves of the broad ligament off the uterine arteries skeletonizing them bilaterally. I then took a second clamp with the synchroseal and with the mary carmen, transected the vessels away from the lateral aspect to the cervical stroma. I dissected the anterior peritoneum off the lower uterine segment. I continually pushed the bladder back and I took excessively great care and I was eventually able to dissect the vesicouterine peritoneum off the lower uterine segment. I then dissected in a V fashion towards the midline between the uterosacral ligaments. This allowed me to skeletonize the uterine vessels bilaterally. The balloon on the NAYLA was insufflated. This allowed me to see the NAYLA circumferentially. I then performed a colpotomy anteriorly and then amputate with cervix away from the vaginal fornix. I then continued the colpotomy circumferentially. The uterus was removed through the vagina. The business services assistant left a sponge in the vagina to keep the pneumoperitoneum. I placed a laparoscopic needle and drained the cyst to allow delivery through the vagina. I then clamped the left infundibulopelvic ligament, cut and cauterized with the synchroseal. I was then able to removed the ovary and tube through the vagina. The sponge was placed back into the vagina to maintain the pneumoperitoneum. I then began closure of the vaginal cuff. I closed the apices of the vaginal cuff with 2-0 Vicryl V lock sutures with a colposuspension through the uterosacral ligaments. This suspended the apices of the vaginal cuff. I extended this to the midline from both sides and overlapped the V lock sutures in the midline. Excellent closure is noted and hemostasis is achieved. All the needles were removed from the patient's abdomen. Now, the robotic instruments were removed and the robot was docked back to laparoscopy. The pelvis was irrigated. There was no active bleeding noted. Bilateral ureters were seen the entire time during the surgery and were peristalsing. There was no excessive bleeding noted. The trocars were removed under direct visualization. The laparoscopic sites were visualized and found to be hemostatic. The trocar sites were injected with 0.25% Marcaine. The skin incisions were closed with 4-0 Monocryl in a subcuticular fashion and then with Dermabond. Op sites were placed over the incision sites. The instruments were removed from the vagina and I noted there were no abrasions. Attention was now turned to the vagina. The cystocele was not as prominent as prior to hysterectomy, but was still 2+, and there was a 2+ rectocele with scarring from the previous episiotomy/vaginal deliveries. The anterior vaginal epithelium was grasped in the midline with dilute vasopressin. I then made a midline incision and then dissected the vaginal epithelium off the vesicovaginal fascia. I then reduced the cystocele with interrupted figure of eight stitches of 2-0 Vicryl. The perineum was grasped on either side of the midline with ramírez clamps and the posterior vaginal epithelium was injected with dilute vasopressin. I made a midline incision in the perineum and then the vaginal epithelium was undermined with curved Werner scissors. I then made a midline incision in the posterior vaginal epithelium and continued the dissection laterally. At this point, I then reduced the rectocele in the midline with figure of eight stitches of 2-0 Vicryl. I then made a pyramidal incision in the perineum and removed the previous episiotomy scar. I then trimmed the excess vaginal epithelium and closed the posterior incision with 2-0 Vicryl. I then repaired the perineum in standard fashion with 2-0 Vicryl. I then turned attention back to the anterior vagina for the placement of the pubovaginal sling (Desura). I placed this on either side in standard fashion through the obturator membranes bilaterally ensuring that it laid flat and there was space between the sling and the mesh. I then did an indicated cystoscopy and revealed no abnormal bladder findings and no mesh in the vagina. I ensured that there was midurethral placement of the sling. At this point, the scope was removed and a Crede maneuver was done revealing no bladder leakage. I then removed the sling applicator. I trimmed the excess vaginal epithelium and then closed this defect with 2-0 Vicryl in a running fashion. There was good hemostasis. The vagina was now packed with vaginal estrogen cream and vaginal packing. Sponge, lap, needle and instrument counts correct times two. Patient was awakened and taken to recovery in a stable condition. Findings of the Procedure uterine fibroids Left 10 + cm ovarian cyst, suspect serous cystadenoma. 2+ cystocele 2+ rectocele Old episiotomy scar Allergies and Home Medications Allergies Coded Allergies: codeine (Unverified Allergy, Unknown, 03/23/14) amoxicillin (Verified Adverse Reaction, Mild, Nausea, 05/28/20) clavulanic acid (Verified Adverse Reaction, Mild, Nausea, 05/28/20) Patient Home Medication List Home Medication List Reviewed: Yes Acetaminophen (Acetaminophen) 500 Mg Tablet, 1,000 MG PO Q8HR Prescribed by: TONNY HI on 07/01/21 1306 Alprazolam (Alprazolam) 1 Mg Tablet, 0.25 MG PO TID PRN for ANXIETY, (Reported) Entered as Reported by: ASHLEY ALLEN on 07/01/21 1550 Last Action: Continued Amlodipine Besylate (Amlodipine Besylate) 5 Mg Tablet, 5 MG PO 1800, (Reported) Entered as Reported by: DELIA NATH on 06/26/21 1548 Last Action: Continued Aspirin (Aspirin) 81 Mg Tab.chew, 81 MG PO DAILY, (Reported) Entered as Reported by: AAYUSH DOTY on 05/28/20 1120 Last Action: Held Atorvastatin Calcium (Atorvastatin Calcium) 10 Mg Tablet, 10 MG PO HS, (Reported) Entered as Reported by: ASHLEY ALLEN on 07/01/21 1550 Last Action: Continued Calcium Carbonate/Vitamin D3 (Calcium 600 + Vit D 800 Tab) 1 Each Tablet, 1 EACH PO BID, (Reported) Entered as Reported by: AAYUSH DOTY on 05/28/20 1120 Last Action: Reviewed Docusate Sodium (Colace) 100 Mg Capsule, 100 MG PO DAILY Prescribed by: TONNY HI on 07/01/21 1306 Fexofenadine HCl (Sujata Allergy) 180 Mg Tablet, 180 MG PO DAILY, (Reported) Entered as Reported by: CAITLYN VALLE on 10/26/15 1435 Last Action: Reviewed Ibuprofen (Ibu) 600 Mg Tablet, 600 MG PO Q6HR Prescribed by: TONNY HI on 07/01/21 1306 Losartan Potassium (Losartan Potassium) 50 Mg Tablet, 50 MG PO BID, (Reported) Entered as Reported by: DELIA NATH on 06/26/21 1548 Last Action: Continued Metoprolol Tartrate (Metoprolol Tartrate) 50 Mg Tablet, 50 MG PO BID, (Reported) Entered as Reported by: ASHLEY ALLEN on 07/01/21 1550 Last Action: Continued Multivitamin (Multivitamins) 1 Each Tablet, 1 EACH PO DAILY, (Reported) Entered as Reported by: AAYUSH DOTY on 05/28/201119 Last Action: Held [place]-3/Dha/Epa/Fish Oil (Fish Oil 1,000 mg Softgel) 1 Each Capsule, 1 EACH PO BID, (Reported) Entered as Reported by: AAYUSH DOTY on 05/28/201119 Last Action: Held Pantoprazole Sodium (Protonix) 40 Mg Tablet.dr, 40 MG PO BID, (Reported) Entered as Reported by: AAYUSH DOTY on 05/28/201119 Last Action: Continued Paroxetine HCl (Paxil) 40 Mg Tablet, 40 MG PO DAILY, (Reported) Entered as Reported by: AAYUSH DOTY on 05/28/201119 Last Action: Converted Simethicone (Mi-Acid) 80 Mg Tab.chew, 80 MG PO Q2HR PRN for gas Prescribed by: TONNY HI on 07/01/21 1306 TONNY HI DO Jul 01, 2021 12:56
[2021-07-01] MEDS ORDERED: PATIENT MAY USE OWN MEDS, ALL MC SCH (13:00)
[2021-07-01] MEDS ORDERED: morphine INJ 4 MG/ML 1 ML (VIAL/SYRINGE) IV PRN (13:00)
[2021-07-01] MEDS ORDERED: NALOXONE 0.4 MG/ML 1 ML (NARCAN) VIAL IV PRN (13:00)
[2021-07-01] MEDS ORDERED: ONDANSETRON 4 MG (ZOFRAN) ORAL DISSOLVE TAB PO PRN (13:00)
[2021-07-01] MEDS ORDERED: SIMETHICONE 80 MG (MYLICON) CHEW PO PRN (13:00)
[2021-07-01] MEDS ORDERED: CHLORASEPTIC LOZENGE MM PRN (13:00)
[2021-07-01] MEDS ORDERED: ACET-93 PO (13:06)
[2021-07-01] MEDS ORDERED: SMT80CT PO (13:06)
[2021-07-01] MEDS ORDERED: DOCU-143 PO (13:06)
[2021-07-01] MEDS ORDERED: IBUP-844 PO (13:06)
--- NOTE | 2021-07-01 13:08 | Discharge Inst-Women's Service ---
Discharge Inst-Women's Serv Depart Medication/Instructions New, Converted or Re-Newed RX: Transmitted to Pharmacy (oxycodone transmitted previously from the office) Final Diagnosis incomplete uterovaginal prolapse stress urinary incontinence large left ovarian cyst, likely serous cystadenoma uterine fibroids Problems Reviewed?: Yes Consults/Follow Up Additional Follow Up: Yes (1 week and 6-8 weeks) Activity Activity: Activity as Tolerated (no lifting over 25 lba) Driving Instructions: No Driving for 1 Week NO SMOKING: NO SMOKING Nothing Inside Vagina: No Douching, No [place], No Tampons Diet Discharge Diet: No Restrictions Symptoms to Report to : Swelling Increased, Bleeding Excessive, Pain Increased, Fever Over 101 Degrees F, Vaginal Bleeding Increase, Cramps in Feet or Legs, Vaginal Discharge Foul For Any Problems or Questions: Contact Your Physician Skin/Wound Care Infection Signs and Symptoms: Increased Redness, Foul Odor of Wound, Increased Drainage, Skin Itchy or Has a Rash, Increased Swelling, Temperature Above 101 F Operative Area Clean and Dry: You May Remove Bandage (in 3 days, or if soiled/ wet) Stitches/[place]/Dermabond: Dermabond Bathing Instructions: TONNY Esparza DO Jul 01, 2021 13:08
[2021-07-01] MEDS ORDERED: HYDROmorphone 2 MG/ML VIAL (DILAUDID) IV ONE (13:15)
[2021-07-01] MEDS ORDERED: ONDANSETRON 4 MG/2 ML (SDV) Z0FRAN IVP PRN (13:15)
[2021-07-01] MEDS ORDERED: HYDROmorphone 2 MG/ML VIAL (DILAUDID) ONE (13:19)
[2021-07-01] MEDS: LACTATED RINGERS 1,000 ML IV SCH ×3 (13:23→23:05)
[2021-07-01] MEDS ORDERED: KETOROLAC 30 MG/ML VIAL IV SCH (15:00)
[2021-07-01] MEDS: ACETAMINOPHEN 500 MG TAB (TYLENOL) PO SCH ×2 (15:32→23:05)
[2021-07-01] MEDS ORDERED: ALPR1TAB7 PO (15:50)
[2021-07-01] MEDS ORDERED: ATOR10TA66 PO (15:50)
[2021-07-01] MEDS ORDERED: METO50TA15 PO (15:50)
[2021-07-01] MEDS ORDERED: ALPRAZolam 1 MG (XANAX) TAB PO PRN (17:15)
[2021-07-01] MEDS ORDERED: ALPRAZolam 0.25 MG (XANAX) TAB PO PRN (17:30)
[2021-07-01] MEDS: KETOROLAC 30 MG/ML VIAL IV SCH ×2 (17:58→23:05)
[2021-07-01] MEDS ORDERED: amLODIPine 5 MG (NORVASC) TAB PO SCH (18:00)
[2021-07-01] MEDS ORDERED: AtorvaSTATin TABLET 10 MG TABLET PO SCH (21:00)
[2021-07-01] MEDS ORDERED: traZODone 50 MG (DESYREL) TAB PO SCH (21:00)
[2021-07-01] MEDS: LOSARTAN 50 MG (COZAAR) TAB PO SCH (21:00)
[2021-07-01] MEDS: meTOprolol TARTRATE 50 MG (LOPRESSOR) TAB PO SCH (22:00)
[2021-07-01] MEDS: PANTOPRAZOLE 40 MG (PROTONIX) TAB PO SCH (22:01)
[2021-07-02 02:15] VITALS: BP 115/63
[2021-07-02] MEDS: LACTATED RINGERS 1,000 ML IV SCH (06:52)
[2021-07-02 07:45] VITALS: BP 149/72
[2021-07-02] MEDS: KETOROLAC 30 MG/ML VIAL IV SCH (07:47)
[2021-07-02] MEDS: ACETAMINOPHEN 500 MG TAB (TYLENOL) PO SCH (07:53)
[2021-07-02] MEDS: PANTOPRAZOLE 40 MG (PROTONIX) TAB PO SCH (07:57)
[2021-07-02] MEDS: LOSARTAN 50 MG (COZAAR) TAB PO SCH (07:59)
[2021-07-02] MEDS: meTOprolol TARTRATE 50 MG (LOPRESSOR) TAB PO SCH (07:59)
[2021-07-02] MEDS ORDERED: PAROXETINE 40 MG TABLET PO SCH (09:00)
[2021-07-02] MEDS ORDERED: IBUPROFEN 600 MG (MOTRIN) TAB PO SCH (12:00)
--- NOTE | 2021-07-02 12:22 | Anesthesia-General Post-Op ---
General Patient Condition Mental Status/LOC: Same as Preop Cardiovascular: Satisfactory Nausea/Vomiting: Absent Respiratory: Satisfactory Pain: Controlled Complications: Absent Post Op Complications Complications None Follow Up Care/Instructions Patient Instructions None needed. Anesthesia/Patient Condition Patient Condition Patient is already discharged to home but she was doing well prior to her discharge to home, no complaints, stable vital signs, no apparent adverse anesthesia problems. LINK ESPINOSA DO Jul 02, 2021 12:22
== END 2021-07-02 11:30 | disposition home or self-care (01) ==
LOC: SDC 08:28 → WS 14:18 → SDC 07-02 11:30
PROVIDERS: ATTEND Obstetrics & Gynecology
DX: D25.1 Intramural leiomyoma of uterus (principal); D25.2 Subserosal leiomyoma of uterus; D27.1 Benign neoplasm of left ovary; N73.6 Female pelvic peritoneal adhesions (postinfective); N81.2 Incomplete uterovaginal prolapse; N39.3 Stress incontinence (female) (male); N80.0 Endometriosis of uterus; R00.2 Palpitations; I11.9 Hypertensive heart disease without heart failure; E78.5 Hyperlipidemia, unspecified; J30.2 Other seasonal allergic rhinitis; F17.210 Nicotine dependence, cigarettes, uncomplicated; Z87.19 Personal history of other diseases of the digestive system; Z98.890 Other specified postprocedural states; Z86.59 Personal history of other mental and behavioral disorders; Z79.899 Other long term (current) drug therapy
CPT/HCPCS: 51992; 57260; 58571; 81000; 84703; 85025; 86850; 86900; 86901; 87081; 87088; 88307; 94664; C1771; 36415

== ENCOUNTER → 2021-09-03 | Outpatient (CLI) | payer OTHER ==
[~2021-09-03] VITALS: Ht 167 cm; Wt 90.0 kg
[~2021-09-03] MED LIST changes: +ACET-93 PO; +ALPR1TAB7 PO; +ATOR10TA66 PO; +CATHETER FLUSH 10 ML SYR IVP PRN; +DOCU-143 PO; +IBUP-844 PO; +METO50TA15 PO; +SMT80CT PO
[2021-09-03 13:38] VITALS: BP 163/91
[2021-09-03 13:51] VITALS: BP 142/100
--- NOTE | 2021-09-03 15:41 | Cardiology Stress Test Report ---
Stress Test Report Date of Procedure/Referring: Date of Procedure: Sep 03, 2021 PCP Tha Keys MD Admitting Physician Nelia Fam DO Indications: HTN Baseline Heart Rate: 57 Baseline Blood Pressure: Blood Pressure Systolic: 142 Blood Pressure Diastolic: 100 Vital Signs Date Time Temp Pulse Resp B/P (MAP) Pulse Ox O2 Delivery O2 Flow Rate FiO2 09/03/21 13:38 55 17 163/91 (115) 99 Room Air Baseline Vital Signs Vital Signs Date Time Temp Pulse Resp B/P (MAP) Pulse Ox O2 Delivery O2 Flow Rate FiO2 09/03/21 13:38 55 17 163/91 (115) 99 Room Air Baseline EKG: Baseline EKG: NSR Summary: After explaining the procedure and details to the patient, she signed the consent and was brought to the stress nuclear laboratory. Patient exercised on standard Faustino protocol, EKG, heart rate and blood pressure were monitored continuously, resting and stress doses of radio tracer were injected, imaging was acquired and reviewed in the short axis, horizontal long axis and vertical long axis views Patient was able to exercise for a total of 10.30 minutes on Faustino protocol, METs 11.5 Maximum heart rate 146 Maximum blood pressure 212/107 Stress EKG, Minimal nondiagnostic changes Recovery EKG, Return to baseline TID: 0.81 SSS: 2 SDS: 2 EF: 66 Conclusion: 1. Excellent exercise tolerance for a total of 10 minutes and 30 seconds on standard Faustino protocol, 11.5 METS achieving 87% of maximal expected heart rate 2. Appropriate heart rate response to exercise with hypertensive response to exercise with peak blood pressure 212/107 return to baseline during recovery 3. Nondiagnostic EKG changes with exercise return to baseline during recovery 4. No significant ischemia or infarction on SPECT images 5. Normal left ventricular size, EF 66% Copy Copies To 1: NELIA FAM BASHAR J MD Sep 03, 2021 15:41
== END ==
LOC: CARD 12:30
PROVIDERS: ATTEND Internal Medicine Cardiovascular Disease
DX: I10 Essential (primary) hypertension (principal)
CPT/HCPCS: 78452; 93017; A9502

== ENCOUNTER → 2021-12-09 | Outpatient (CLI) | payer OTHER ==
[~2021-12-09] MED LIST changes: -CATHETER FLUSH 10 ML SYR IVP PRN
--- NOTE | 2021-12-10 13:09 | Diagnostic Imaging Report ---
INDICATION: 3-D digital mammogram bilateral screening with CAD. CAD is utilized. The current study was also evaluated with a Computer Aided Detection (CAD) system. This study was compared to the prior exams of 10/24/2020, 10/31/2019 and 10/28/2018. At this time there are no current complaints. The current study was also evaluated with a Computer Aided Detection (CAD) system. FINDINGS: The fibroglandular tissue in both breasts is heterogeneously dense. This does limit the sensitivity of this exam. Overall, there does not appear to have been any significant change when compared to the prior study. No primary or secondary sign of malignancy is noted. IMPRESSION: There is no radiographic evidence for malignancy. ACR category 1 ACR BI-RADS Category 1: Negative. Result letter will be mailed to the patient. Note: At least 10% of breast cancer is not imaged by mammography. Dictated by: Dictated on workstation # [id number]
== END ==
LOC: RAD 15:15
PROVIDERS: ATTEND Family Medicine
DX: Z12.31 Encounter for screening mammogram for malignant neoplasm of breast (principal)
CPT/HCPCS: 77063; 77067

== ENCOUNTER 2022-08-26 12:42 | Outpatient (CLI) | payer OTHER ==
[~2022-08-26 12:42] MED LIST changes: +PARO-135 PO; -PARO40TA PO
== END 2022-08-26 13:10 ==
LOC: SLEEP 12:42
PROVIDERS: ATTEND Family Medicine
DX: G47.33 Obstructive sleep apnea (adult) (pediatric) (principal); G47.36 Sleep related hypoventilation in conditions classified elsewhere; I10 Essential (primary) hypertension; I49.9 Cardiac arrhythmia, unspecified
CPT/HCPCS: G0399

== ENCOUNTER → 2022-12-15 | Outpatient (CLI) | payer OTHER ==
--- NOTE | 2022-12-15 16:03 | Diagnostic Imaging Report ---
INDICATION: Routine screening. COMPARISON: 12/09/2021 and 10/24/2020. TECHNIQUE: 2D and 3D bilateral screening mammography was performed with CAD. FINDINGS: Both breasts are heterogeneously dense, limiting the sensitivity of mammography. A nodular density in the upper outer right breast appears stable. No new mass or malignant-appearing microcalcifications are seen. The axillae are unremarkable. IMPRESSION: No mammographic features suspicious for malignancy are identified. ACR BI-RADS Category 2: Benign findings. Result letter will be mailed to the patient. Note: At least 10% of breast cancer is not imaged by mammography. Dictated by: Dictated on workstation # [id number]
== END ==
LOC: RAD 14:32
PROVIDERS: ATTEND Nurse Practitioner
DX: Z12.31 Encounter for screening mammogram for malignant neoplasm of breast (principal)
CPT/HCPCS: 77063; 77067

== ENCOUNTER 2023-01-13 06:57 | Outpatient (CLI) | payer OTHER ==
[~2023-01-13] VITALS: Ht 175.3 cm; Wt 90.0 kg
== END 2023-01-13 13:17 | disposition home or self-care (01) ==
LOC: PREOP 06:57
PROVIDERS: ATTEND Surgery
DX: Z01.818 Encounter for other preprocedural examination (principal)

== ENCOUNTER 2023-01-20 11:52 | Day surgery (SDC) | payer OTHER ==
[~2023-01-20] VITALS: Ht 175.3 cm; Wt 90.0 kg
--- NOTE | 2023-01-20 11:56 | Progress Note-Pre Operative ---
Pre-Operative Progress Note Date of Available H&P: Jan 20, 2023 Date H&P Reviewed: Jan 20, 2023 Time H&P Reviewed: 11:30 History & Physical: No changes noted Pre-Operative Diagnosis: GERD, screening o PADDY MONTOYA MD Jan 20, 2023 11:56
--- NOTE | 2023-01-20 11:58 | Discharge Inst-Surgical ---
D/C Lap Instructions-LINDSAY Follow Up Activity as tolerated High Fiber Diet 25g or more per day Avoid Alcohol, Caffeine, Spicy [place] and Acid foods. Drink 64 fluid oz or more of fluids per day. Symptoms to Report: Fever over 101 degree F, Nausea/Vomiting If any problems/questions: Contact your physician or go to Emergency Room PADDY MONTOYA MD Jan 20, 2023 11:57
[2023-01-20] MEDS ORDERED: LACTATED RINGERS 1,000 ML 1,000 ML IV STA (11:59)
[2023-01-20] MEDS ORDERED: ONDANSETRON 4 MG ORAL DISSOLVE TABLET PO PRN (12:00)
[2023-01-20] MEDS ORDERED: LIDOCAINE JELLY 2% 6 ML SYRINGE MM PRN (12:00)
[2023-01-20] MEDS ORDERED: ONDANSETRON INJECTION 4 MG/2 ML (SDV) IVP PRN (12:00)
[2023-01-20] MEDS ORDERED: HURRICAINE EXT TUBE (BENZOCAINE) XX PRN (12:00)
[2023-01-20 12:22] VITALS: BP 117/70
[2023-01-20] MEDS ORDERED: LIDOCAINE JELLY 2% 6 ML SYRINGE ONE (12:43)
[2023-01-20] MEDS ORDERED: MIDAZOLAM INJ 2 MG/2 ML VIAL ONE (13:07)
[2023-01-20 14:05] VITALS: BP 131/62
--- NOTE | 2023-01-20 14:10 | Progress Note-Post Operative ---
Post-Operative Progess Note Surgeon (s)/Generation Engineer (s) Surgeon PADDY MONTOYA MD Generation Engineer: none Pre-Operative Diagnosis GERD, screening colo Post-Operative Diagnosis reflux esophagitis(grade B), small HH(2cm), mild-mod gastritis. mild chronic stage 2 ext and int hemorrhoids, small polyp splenic flexure. Procedure & Operative Findings Date of Procedure 01/20/23 Procedure Performed/Findings EGD with bx. Colonoscopy with bx. Anesthesia Type mac Estimated Blood Loss Estimated blood loss (mL): minimal Specimens/Packing Specimens Removed ge jxn, antrum, splenic flexure polyp PADDY MONTOYA MD Jan 20, 2023 14:10
[2023-01-20 14:24] VITALS: BP 131/62
[2023-01-20 14:50] VITALS: BP 116/66
--- NOTE | 2023-01-20 21:56 | OPERATIVE REPORT ---
DATE OF SERVICE: 01/20/2023 ATTENDING PRIMARY CARE PHYSICIAN: Dr. Nelia Polanco PREOPERATIVE DIAGNOSES: Gastroesophageal reflux disease, screening colonoscopy with strong family history of breast cancer. Small hiatal hernia, 2 cm in size. POSTOPERATIVE DIAGNOSES: Reflux esophagitis, Mcdonough grade B, small hiatal hernia, 2 cm in size, moderate gastritis, chronic stage II, external and internal hemorrhoids. Small splenic flexure polyp, 2-3 mm in size. PROCEDURE: EGD with biopsy, colonoscopy with polypectomy with hot biopsy forceps. SURGEON: Paddy Montoya MD ANESTHESIA: Monitored anesthesia care. ESTIMATED BLOOD LOSS: Minimal. FINDINGS: Reflux esophagitis, Mcdonough grade B, small hiatal hernia, 2 cm in size, moderate gastritis, chronic stage II, external and internal hemorrhoids. Small splenic flexure polyp, 2-3 mm in size. DISPOSITION: The patient tolerated the procedure well. INDICATIONS: The patient is a 52-year-old female known to us. We had seen her in 11/2015 for an EGD and colonoscopy for gastroesophageal reflux disease and for screening. She was found to have reflux esophagitis, Mcdonough grade B, small hiatal hernia, 2 cm in size as well as a mild gastritis. Colonoscopy revealed small polyp of the sigmoid colon, which was benign. She is now in need of a screening colonoscopy as well as EGD. She reports that she does have occasional episodes of reflux; however, for the most part it is under control with diet and lifestyle accommodation. She also does take Protonix and famotidine daily. DESCRIPTION OF PROCEDURE: The patient was brought to the endoscopy suite and laid in the left lateral decubitus position. After adequate IV pain and sedative medications and monitored anesthesia care, the mouthpiece was applied. The endoscope was placed in the mouth, visualizing the pharynx and hypopharyngeal region. Vocal cords, epiglottis and vallecula identified and appeared to be normal. The endoscope was then gently intubated into the esophageal opening and esophagus insufflated. The endoscope was then advanced through the first, second and third portions of esophagus at the level of the GE junction, a reflux esophagitis, Mcdonough grade B identified. No ulcers or strictures identified in this region. A biopsy was taken with forceps with visualization of good hemostasis. The endoscope was then advanced into the stomach and endoscope retroflexed, visualizing a small hiatal hernia again 2 cm in size with no increase in size. There was a akht-ma-wsoezhgw gastritis. No formal ulcerations, polyps or any neoplasms. A biopsy was taken of the antrum to rule out H. pylori with visualization of good hemostasis. The endoscope was then advanced through the pylorus and the first and second portion of the duodenum, which appeared normal with no distal obstructions. The endoscope was then slowly withdrawn while taking a second look and suctioning of residual air with no additional findings. A digital rectal examination was performed which revealed chronic mild stage II, external and internal hemorrhoids, not actively edematous nor inflamed and no bleeding. Normal sphincter tone was felt and there were no palpable masses. The endoscope was then intubated into the anus, rectum gently insufflated. The endoscope was then advanced through the valves of Vera of the rectum with no polyps or any neoplasms identified. Through the sigmoid colon, no diverticula identified. The endoscope was then advanced through the remainder of the descending colon. At the splenic flexure, a small hyperplastic polyp identified approximately 2-3 mm in size. This was biopsied and destroyed using forceps and electrocautery with visualization of good hemostasis. The endoscope was then advanced through the remainder of the transverse and ascending colon to the cecum, which were normal. The endoscope was then slowly withdrawn while taking a second look and suctioning of residual air with no additional findings. The patient tolerated the procedure well. We will recommend continued medical management with the necessary dietary and lifestyle accommodation including small and more frequent meals, avoidance of eating at night as well as head elevation while lying supine. She also needs to avoid caffeinated beverages, spicy, greasy and acidic foods. We will also have her continue with her current medication regimen of Protonix and famotidine daily. We will also recommend a high-fiber diet with a fiber supplement, which should equal or exceed 25 grams daily as well as significant amounts of water to promote soft stools on a daily basis. We will await the biopsy results; however, she does not have any first-degree family history of colon cancer; however, she does have a strong family history of breast cancer, which may indicate some form of genetic predisposition to the formation of other cancers. She states that her grandmother, mother and sister were all diagnosed with breast cancer. For this reason, we will give her the choice of proceeding with screening colonoscopies every 5 years versus 10 years. Job ID: [id number] DocumentID: [id number] Dictated Date: 01/20/2023 14:05:32 Veterinary Livestock Inspector Date: 01/20/2023 21:54:00 Dictated By: PADDY MONTOYA MD
== END 2023-01-20 14:50 | disposition home or self-care (01) ==
LOC: ENDO 11:52
PROVIDERS: ATTEND Surgery
DX: K21.00 Gastro-esophageal reflux disease with esophagitis, without bleeding (principal); K29.70 Gastritis, unspecified, without bleeding; D12.3 Benign neoplasm of transverse colon; K44.9 Diaphragmatic hernia without obstruction or gangrene; K64.1 Second degree hemorrhoids; K64.4 Residual hemorrhoidal skin tags; Z79.899 Other long term (current) drug therapy; F17.210 Nicotine dependence, cigarettes, uncomplicated
CPT/HCPCS: 88305